=== PATIENT | female | born 1990 | race Caucasian/White ===

== ENCOUNTER 2022-05-09 14:45 | Emergency (ER) | payer OTHER, SELFPAY ==
--- NOTE | 2022-05-09 14:58 | ED.URI ---
HPI - URI/Sore Throat General Chief Complaint: Dental/Oral Stated Complaint: tongue rash,vaginal discharge Time Seen by Provider: 05/09/22 14:59 Source: patient Mode of arrival: ambulatory Limitations: no limitations History of Present Illness HPI Narrative: Sol is a 32-year-old female patient presenting to the clinic today with complaints of possible oral thrush and vaginal yeast infection. She reports she has just finished up antibiotics and developed oral thrush and a vaginal yeast infection. She has a prescription already sent to the pharmacy for fluconazole but she has not picked it up yet. Her PCP told her that the fluconazole would not help with the oral thrush so they told her to come to the Urgent Care to be evaluated Related Data Home Medications Medication Instructions Recorded Confirmed albuterol sulfate 90 mcg/actuation 2 puff inhalation PRN PRN 05/09/22 05/09/22 aerosol inhaler Shortness Of Breath Or Wheezing amlodipine 2.5 mg tablet 2.5 mg PO DAILY 05/09/22 05/09/22 clonazepam 0.5 mg tablet 0.5 mg PO DAILY 05/09/22 05/09/22 gabapentin 600 mg tablet 600 mg PO BID 05/09/22 05/09/22 Allergies Allergy/AdvReac Type Severity Reaction Status Date / Time minocycline Allergy Severe Anaphylactic Verified 05/09/22 15:04 Shock Review of Systems Review of Systems: Pertinent positives per HPI. Patient denies any fever, chills, rash, headache, visual changes, dizziness, cough, runny nose, sore throat, shortness of breath, chest pain, palpitations, nausea, vomiting, diarrhea, constipation, abdominal pain, or any urinary issues. PMFSH Comments At the time of my signature, I reviewed and agree with the nursing past medical, surgical, social, and family history. There is no relevant family history pertinent to the patient complaint. Exam Narrative: General: Well-developed, well nourished, in no apparent distress Head: Normocephalic, atraumatic Eyes: Pupils equally round and reactive to light bilaterally, EOM intact, sclera and conjunctive clear, no discharge, lids normal Ears: TMs intact and clear, ear canals clear, no drainage, grossly hearing normal. Nose: Nares patent, no discharge, no inflammation, no sinus tenderness. Mouth: Oropharynx with yellowish plaques on her tongue and on her soft palate, good dentition, MMM. Neck: Supple, trachea midline, no enlargement of anterior or posterior cervical nodes, no thyroid masses or goiter palpable. Cardio: Regular rate and rhythm, s1 and s2 normal, no murmur appreciated. Resp: Clear to auscultation bilaterally anteriorly and posteriorly, no rhonchi, rales, wheezing or rubs : Deferred Course Course Emergency Course: Portions of this record may have been created with voice recognition software. Level of Care: Express Care Visit Vital Signs Vital signs: Vital Signs Temperature 36.9 C 05/09/22 15:08 Pulse Rate 80 05/09/22 15:08 Respiratory Rate 16 05/09/22 15:08 Blood Pressure 115/74 05/09/22 15:08 Pulse Oximetry 100 05/09/22 15:08 Oxygen Delivery Room Air 05/09/22 15:08 Temperature 36.9 C 05/09/22 15:08 Pulse Rate 80 05/09/22 15:08 Respiratory Rate 16 05/09/22 15:08 Blood Pressure 115/74 05/09/22 15:08 Pulse Oximetry 100 05/09/22 15:08 Oxygen Delivery Room Air 05/09/22 15:08 Vital signs reviewed MDM - URI/Sore Throat MDM Narrative Medical decision making narrative: at the time of visit patient is resting comfortably on the exam table. Patient has oral thrush and suspected your vaginal yeast infection. Patient is already got prescription for fluconazole at the pharmacy for vaginal infection however she is requesting something for the oral thrush. Prescription for nystatin was sent to the pharmacy. Supportive measures were discussed with the patient she voiced understanding of discharge instructions and agrees to treatment plan. Differential Diagnosis Differential diagnosis: Likely other ( V
[2022-05-09 15:08] VITALS: BP 115/74; PULSE 80; RESP 16; TEMP 36.9; O2SAT 100
== END 2022-05-09 15:25 | disposition home or self-care (01) ==
PROVIDERS: Emergency Provider Nurse Practitioner Family; PCP Family Medicine
DX: B37.0 Candidal stomatitis (principal); B37.31 Acute candidiasis of vulva and vagina
CPT/HCPCS: 99213; G0463

== ENCOUNTER 2022-07-03 21:38 | Emergency (ER) | payer OTHER, SELFPAY ==
--- NOTE | ~2022-07-03 | CT_ITS ---
Non-contrast Head CT History: Head trauma COMPARISON: 01/04/2018 Technique: Axial non-contrast imaging of the brain was performed. Dose reduction technique was used on this scan by utilizing automated exposure control and iterative reconstruction technique. The dose -length product (DLP) was 529.67 mGy-cm. Findings: There is no evidence of intracranial hemorrhage, mass lesion, or acute infarct. Brain par enchyma appears normal. The ventricles and subarachnoid spaces are normal in size. The calvarium ap pears normal. The visualized paranasal sinuses and mastoid air cells are clear. Impression: No significant abnormality seen. Reviewed, dictated and finalized at location . ARE DIRECTOR Impression: No significant abnormality seen.
--- NOTE | ~2022-07-03 | CT_ITS ---
CT Facial Bones and Cervical Spine Clinical Indication: Trauma Technique: Contiguous axial scans were obtained through the facial bones and cervical spine followed by coronal and sagittal reconstructions. Dose reduction technique was used on this scan by utilizing automated exposure control and iterative reconstruction technique. The dose-length product (DLP) was 116.83 mGy-cm. Findings: CT facial bones: No fractures are identified. The visualized paranasal sinuses are clear. Intraorbita l soft tissues appear normal. CT cervical spine: No fractures or subluxation. Unremarkable visualized bony structures. The interv ertebral disc spaces are preserved. No prevertebral soft tissue swelling. Impression: No fracture is seen in the facial bones. No fracture or subluxation of the cervical spine. Reviewed, dictated and finalized at location . VERY REP Impression: No fracture is seen in the facial bones. No fracture or subluxation of the cervical spine.
[2022-07-03 21:41] VITALS: PULSE 88; O2SAT 99
[2022-07-03 21:43] VITALS: BP 144/88; PULSE 113; RESP 20; TEMP 36.7; O2SAT 99
--- NOTE | 2022-07-03 21:45 | ED.SEIZURE ---
HPI - Seizure General Chief Complaint: Seizure Stated Complaint: Seizure Source: patient Mode of arrival: ambulatory Limitations: no limitations and altered mental status History of Present Illness HPI Narrative: Patient ambulated into the emergency room 32-year-old white female the laceration over her right eyebrow. States she had a seizure last night. Her significant came and said she was at [facility] just prior to admission And was acting funny and then just fell forward on the parking lot without complete loss of consciousness. He got up and they drove her home we cleaned up her wound at home. Initially she did not want her laceration repaired at home but then her and came over and said she needed or repaired. So patient came to the ED.. Patient states she has been drinking but Monday how much. Patient stated she took a Percocet a couple days ago so her urine would be dirty . Related Data Home Medications Medication Instructions Recorded Confirmed albuterol sulfate 90 mcg/actuation 2 puff inhalation PRN PRN 05/09/22 05/09/22 aerosol inhaler Shortness Of Breath Or Wheezing amlodipine 2.5 mg tablet 2.5 mg PO DAILY 05/09/22 05/09/22 clonazepam 0.5 mg tablet 0.5 mg PO DAILY 05/09/22 05/09/22 gabapentin 600 mg tablet 600 mg PO BID 05/09/22 05/09/22 Allergies Allergy/AdvReac Type Severity Reaction Status Date / Time minocycline Allergy Severe Anaphylactic Verified 05/09/22 15:04 Shock Exam Narrative: thin white female, smells of alcohol. Ambulates in the emergency room well. Has a 2 cm laceration over her right eyebrow on the forehead irregular With surrounding tenderness. head is otherwise atraumatic and normocephalic. Eyes conjunctiva pink sclera nonicteric. Pupils are round react to light extraocular movements are intact. Nose left naris has dried blood in the nares there is no septal hematoma. Oropharynx is clear with no dental injuries. Neck is supple mildly tender posteriorly. Hard collar was placed on the patient. But she took it off and said she was not going to wear it. Risk and benefits including the risk of fractured cervical spine and permanent paralysis and disability was discussed. Patient was able to understand this and repeated back to me the risk. She refused a hard collar anyway. Chest and back were nontender. Blood pressure is 144/88 pulse was 88 respirations were 20 temperature was 36.7? centigrade O2 sat on room air was 99%. Lungs are clear heart was regular rate and rhythm without murmurs gallops or rubs. Abdomen soft and nontender no hepatosplenomegaly or masses. Extremities were atraumatic without cyanosis clubbing or edema. She had full range of motion of all extremities Without tenderness. Neurological is she was alert and oriented to place but not time. She she states she had a seizure last night instead of tonight. She knew her name she knew where she was at and why she was here. Motor and sensory normal and gait was normal. Course Vital Signs Vital signs: Vital Signs Temperature 36.7 C 07/03/22 21:43 Pulse Rate 113 H 07/03/22 21:43 Respiratory Rate 20 07/03/22 21:43 Blood Pressure 144/88 H 07/03/22 21:43 Pulse Oximetry 99 07/03/22 21:43 Oxygen Delivery Room Air 07/03/22 21:43 Temperature 36.7 C 07/03/22 21:43 Pulse Rate 113 H 07/03/22 21:43 Respiratory Rate 20 07/03/22 21:43 Blood Pressure 144/88 H 07/03/22 21:43 Pulse Oximetry 99 07/03/22 21:43 Oxygen Delivery Room Air 07/03/22 21:43 MDM - Seizure MDM Narrative Medical decision making narrative: Patient eloped from the emergency department with her male significant other at 10:00 p.m. 08/01/2037 CT of cervical spine was negative. Call was [phone] Discharge Plan Discharge Prescriptions: No Action gabapentin 600 mg tablet 600 mg PO BID clonazepam 0.5 mg tablet 0.5 mg PO DAILY amlodipine 2.5 mg tablet 2.5 mg PO DAILY albuterol
[2022-07-03 22:13] LABS: Hematocrit 38.2 % (35.0-49.0); Hemoglobin 12.8 g/dL (12.0-15.0); Mean Corpuscular HGB Conc 33.5 g/dL (32.0-36.0); Mean Corpuscular Hemoglobin 30.4 pg (27.0-31.0); Mean Corpuscular Volume 90.7 fL (78.0-102.0); Mean Platelet Volume 10.6 fl (9.2-11.8); Platelet Count Result 214 K/mm3 (150-420); Red Blood Count 4.21 M/mm3 (4.20-5.40); Red Cell Distribution Width 14.9 % (11.6-14.4); White Blood Count 12.7 K/mm3 (4.8-10.8)
[2022-07-03 22:29] LABS: Alanine Aminotransferase 16 U/L (14-59); Albumin Level 3.7 g/dL (3.4-5.0); Alkaline Phosphatase 88 U/L (46-116); Anion Gap 12 mmol/L (8-16); Aspartate Amino Transferase 24 U/L (15-37); Bilirubin,Total 0.3 mg/dL (0.00-1.00); Blood Urea Nitrogen 10 mg/dL (7-18); Calcium 7.7 mg/dL (8.5-10.1); Carbon Dioxide 28 mmol/L (21-32); Chloride 106 mmol/L (98-108); Estimated CRCL calculation 81 ml/min; Estimated Glomerular Filt Rate > 60; Glucose 89 mg/dL (70-99); Osmolality Calculated 300 mOsm/kg (285-295); Potassium 3.4 mmol/L (3.5-5.1); Sodium 146 mmol/L (136-145); Total Protein 7.1 g/dL (6.4-8.2)
[2022-07-03 22:36] LABS: Ethanol 380 mg/dL (0-6)
[2022-07-03 22:45] LABS: SPREG INTERNAL CONTROL Positive; Serum Qual hCG Negative
== END 2022-07-03 22:38 | disposition left against medical advice (07) ==
PROVIDERS: Emergency Provider Emergency Medicine; PCP Student in an Organized Health Care Education/Training Program
DX: S01.111A Laceration without foreign body of right eyelid and periocular area, initial encounter (principal); F10.129 Alcohol abuse with intoxication, unspecified; Y90.0 Blood alcohol level of less than 20 mg/100 ml; W18.39XA Other fall on same level, initial encounter; Y92.481 Parking lot as the place of occurrence of the external cause
CPT/HCPCS: 36415; 70450; 70486; 72125; 80053; 80307; 84703; 85027; 99284; L0150